=== PATIENT | female | born 1980 | race Hispanic/Latino ===

== ENCOUNTER 2018-05-15 05:04 | Day surgery (SDC) | payer OTHER ==
[2018-05-15] VITALS (20 sets, daily range): BP systolic 102–144; BP diastolic 59–84
[2018-05-15 05:36] LABS: BASOPHILS % (AUTO) 0.5 % (0.0-5.0); EOSINOPHILS % (AUTO) 1.2 % (0.0-8.0); HEMATOCRIT 39.1 % (36-48); LYMPHOCYTES % (AUTO) 17.3 % (21.0-51.0); MEAN CORPUSCULAR HEMOGLOBIN 28.7 pg (27.0-33.0); MEAN CORPUSCULAR HGB CONC 33.5 g/dL (32.0-36.0); MEAN CORPUSCULAR VOLUME 85.6 fL (79-99); MONOCYTES % (AUTO) 5.4 % (3.0-13.0); NEUTROPHILS % (AUTO) 75.6 % (40.0-77.0); NUCLEATED RED BLOOD CELLS 0.1 % (0.0-0.19); PLATELET COUNT (AUTO) 307 K/uL (130-400); RED BLOOD CELL COUNT(AUTO) 4.57 MIL/uL (4.00-5.50); RED CELL DISTRIBUTION WIDTH 13.5 % (11.0-15.5); WHITE BLOOD COUNT (AUTO) 9.2 K/uL (4.8-10.8)
[2018-05-15 05:37] LABS: APPEARANCE,URINE Clear (CLEAR); BILIRUBIN,URINE Negative (NEGATIVE); COLOR,URINE Yellow (YELLOW); GLUCOSE, URINE (UA) Negative (NEGATIVE); KETONES,URINE Negative (NEGATIVE); LEUKOCYTE ESTERASE ,URINE Trace (NEGATIVE); NITRATE,URINE Negative (NEGATIVE); OCCULT BLOOD,URINE Negative (NEGATIVE); PH,URINE 6.5 (5.0-8.0); PROTEIN,URINE Negative (NEGATIVE)
[2018-05-15 05:46] LABS: CREATININE 0.8 mg/dL (0.5-1.5)
[2018-05-15] MEDS ORDERED: ONDANSETRON HCL MDV 20ML 2 MG/ML VIAL ONE (05:53)
[2018-05-15] MEDS ORDERED: MORPHINE SULFATE 4 MG/1ML SYG ONE (05:53)
[2018-05-15] MEDS ORDERED: KETOROLAC TROMETHAMINE 30MG/ML ONE ×2 (05:53→14:59)
[2018-05-15 05:57] LABS: ALBUMIN 3.7 g/dL (3.5-5.0); BILIRUBIN,TOTAL 0.3 mg/dL (0.2-1.0); TOTAL PROTEIN, SERUM 7.7 g/dL (6.0-8.3)
[2018-05-15 05:58] LABS: BACTERIA,URINE Few /HPF (None Seen); MUCUS,URINE Few LPF (None Seen); RBC,URINE 0-1 /HPF (0-1)
[2018-05-15] MEDS ORDERED: SODIUM CHLORIDE 0.9% 1000ML 1,000 ML IV SCH (08:05)
[2018-05-15] MEDS ORDERED: HYDRALAZINE HCL 20 MG/ML VIAL IV PRN (08:15)
[2018-05-15] MEDS ORDERED: ONDANSETRON HCL 4 MG/2 ML VIAL IV PRN (08:15)
[2018-05-15] MEDS ORDERED: MEPERIDINE-PF 25 MG/ML SYG IV PRN (08:15)
[2018-05-15] MEDS ORDERED: SODIUM CHLORIDE 0.9% 1000ML 1,000 ML IV ONE (08:25)
[2018-05-15] MEDS ORDERED: ZOSYN 3.375GM+NS 50ML 50 ML IV ONE (08:26)
[2018-05-15] MEDS ORDERED: SODIUM CHLORIDE 0.9% 100 ML IV ONE (08:27)
[2018-05-15] MEDS ORDERED: PANTOPRAZOLE 40 MG/VIAL IVP SCH (09:00)
--- NOTE | 2018-05-15 09:52 | NUR ---
dcp Pt lives with her 3 kids 13,14,16 and pts brother and sister. Pt works at [employer], is independent, no DME or HH. Pt is self pay, no PCP. Denies dc needs, plan is home at mo Addendum: 05/15/18 at 0952 by JIGNESH LUCERO Amended: Links added.
[2018-05-15] MEDS ORDERED: MEPERIDINE-PF 25 MG/ML SYG ONE ×3 (11:20→14:51)
[2018-05-15] MEDS ORDERED: SUCCINYLCHOLINE 200MG/10ML SYR ONE (11:57)
[2018-05-15] MEDS ORDERED: LIDOCAINE PF 2% 5ML ABBOJECT ONE ×2 (11:57→12:02)
[2018-05-15] MEDS ORDERED: NEOSTIGMINE 5MG/5ML SYR IV ONE (11:59)
[2018-05-15] MEDS ORDERED: PROPOFOL 10 MG/ML 20ML VIAL IV ONE (11:59)
[2018-05-15] MEDS ORDERED: ONDANSETRON HCL 4 MG/2 ML VIAL ONE (11:59)
[2018-05-15] MEDS ORDERED: DEXAMETHASONE SOD PHOSPHATE 10MG/ML 1ML VIAL ONE (11:59)
[2018-05-15] MEDS ORDERED: MIDAZOLAM HCL 1 MG/ML 2ML VIAL ONE (11:59)
[2018-05-15] MEDS ORDERED: GLYCOPYRROLATE 1 MG/5 ML SYRINGE ONE (11:59)
[2018-05-15] MEDS ORDERED: ROCURONIUM 10MG/1ML SYR 10 MG/ML ML ONE (12:00)
[2018-05-15] MEDS ORDERED: BUPIVACAINE/EPI/PF 0.5% 30ML VIAL IJ ONE (12:00)
[2018-05-15] MEDS ORDERED: FENTANYL CITRATE PF 50 MCG/1 ML 2ML VIAL ONE ×3 (12:01→13:29)
[2018-05-15] MEDS ORDERED: LIDOCAINE HCL 4% LTA SOL 4 ML VIAL ONE (12:02)
[2018-05-15] MEDS ORDERED: METOCLOPRAMIDE 10 MG/2 ML VIAL ONE (12:05)
[2018-05-15] MEDS ORDERED: LACTATED RINGERS 1000ML 1,000 ML IV ONE (12:10)
[2018-05-15] MEDS: ZOSYN 3.375GM+NS 50ML 50 ML IV SCH ×2 (12:20→13:03)
[2018-05-15] MEDS ORDERED: IOHEXOL-350 50ML VIAL IV ONE (12:56)
--- NOTE | 2018-05-15 15:23 | NUR ---
RECEIVE PT RECEIVED FROM PACU VIA STRETCHER AWAKE ALERT ORIENTED X3. PT STABLE. NOT APPARENT DISTRESS. PT STATES SHE FEELS SORENESS TO HER ABDOMEN/INCISION SITE, SCORE OF 4. PT POSITIONED COMFORTABLY. ABDOMEN SOFT. BAND AID DRESSINGS X 4 TO ABDOMEN DRY AND INTACT, NO OOZING NO HEMATOMA NOTED. CALL PATINO WITHIN REACH, FAMILY CALLED TO COME IN TO ROOM.
--- NOTE | 2018-05-15 16:30 | NUR ---
DISCHARGE PT DISCHARGED VIA WHEELCHAIR WITH MOTHER AND SON. NO COMPLAINTS MADE. NOT IN APPARENT DISTRESS. DISCHARGE INSTRUCTIONS GIVEN TO FATHER EARLIER. VERBALIZED UNDERSTANDING. ABDOMEN REMAINED SOFT, DRESSINGS X4 DRY AND INTACT, NO OOZING NO HEMATOMA NOTED.
== END 2018-05-15 16:30 | disposition home or self-care (01) ==
LOC: EDH 05:04 → DAH 05:05 → EDHIP 05:05 → UNDOADMIN 05:05 → UNDODISIN 16:30 → DAH 16:30
PROVIDERS: ATTEND Surgery
DX: K80.12 Calculus of gallbladder with acute and chronic cholecystitis without obstruction (principal); Z98.890 Other specified postprocedural states; G47.30 Sleep apnea, unspecified; R00.1 Bradycardia, unspecified
CPT/HCPCS: 36415; 47563; 74300; 76705; 80053; 81001; 83690; 84484; 84702; 85025; 88304; 93005; A4450; A4649 ×2; A4930; C1758; C9113; J0330; J1100; J1885 ×2; J2001 ×2; J2175 ×3; J2250; J2270; J2405; J2543 ×2; J2704; J2710; J2765; J3010 ×3; J3490 ×2; J7030 ×2; J7120 ×2; Q9967